=== PATIENT | female | born 1975 | race Two or more races ===

== ENCOUNTER 2022-07-13 18:13 | Emergency (ER) | payer MEDICAID ==
[~2022-07-13] VITALS: Ht 167.6 cm; Wt 80.0 kg
[2022-07-13] MEDS ORDERED: IBUPROFEN 600MG TABLET PO ONE (23:15)
[2022-07-14] MEDS ORDERED: IBUP-2029 MT (00:26)
[2022-07-14 00:38] VITALS: BP 141/96
== END 2022-07-14 00:40 | disposition home or self-care (01) ==
LOC: ER 18:13
DX: M25.571 Pain in right ankle and joints of right foot (principal); Z91.81 History of falling
CPT/HCPCS: 73610; 99283

== ENCOUNTER 2023-03-12 19:16 | Emergency (ER) | payer MEDICAID, OTHER ==
[~2023-03-12] VITALS: Ht 162.6 cm; Wt 73.0 kg
[~2023-03-12 19:16] MED LIST: IBUP-2029 MT
[2023-03-12 21:00] VITALS: BP 119/59
[2023-03-12] MEDS ORDERED: ACETAMINOPHEN 325MG TABLET PO ONE (21:00)
[2023-03-12] MEDS ORDERED: IBUPROFEN 400MG TABLET PO ONE (21:00)
== END 2023-03-13 00:35 | disposition home or self-care (01) ==
LOC: ER 19:16
DX: M25.572 Pain in left ankle and joints of left foot (principal); M79.602 Pain in left arm; F41.9 Anxiety disorder, unspecified; F31.9 Bipolar disorder, unspecified
CPT/HCPCS: 73030; 73060; 73610; 73620; 99284